=== PATIENT | male | born 1995 | race Caucasian/White ===

== ENCOUNTER 2022-01-03 13:22 | Emergency (ER) | payer BC ==
[2022-01-03] MEDS ORDERED: Sodium Chloride 0.9% 10 ML Syringe FLUSH PRN ×2 (14:57)
[2022-01-03 15:18] LABS: TROPONIN I HIGH SENSITIVITY 5.8 pg/mL (<=60.3)
[2022-01-03 17:48] VITALS: BP 112/66; PULSE 61
== END 2022-01-03 18:34 | disposition home or self-care (01) ==
LOC: JP.ED 13:22
DX: J90 Pleural effusion, not elsewhere classified (principal); Z79.899 Other long term (current) drug therapy
CPT/HCPCS: 36415; 71046; 71046-26; 80053; 83605; 84145; 84484; 85025; 86140; 93010; 99282; 99285-25; J3490